=== PATIENT | male | born 1925 | race Caucasian/White ===

== ENCOUNTER → 2017-01-12 | Outpatient (CLI) | payer MEDICARE ==
[~2017-01-12] MED LIST: ASPIRIN 81MG TA81 MG PO; LOSARTAN POTASS50 MG PO; METFORMIN1000 MG PO; METOPROLOL50 MG PO; NEXIUM40 MG PO; PREDNISONE 10MG10 MG PO; PROAIR HFA0.09 MG/AC IH; PROMETHAZINE D118 ML PO; SIMVASTATIN40 MG PO; ZITHROMAX Z PA250 MG PO
[2017-01-12 09:14] LABS: HEMOGLOBIN 14.1 g/dL (14.1-18.0); LYMPH # 2.1 K/mm3 (0.7-4.5); LYMPH % 33.9 % (10-50)
[2017-01-12 14:58] LABS: BUN 21 mg/dL (7-18)
[2017-01-12 15:02] LABS: GFR (ESTIMATED) 57 ML/MIN (>60)
== END ==
LOC: LAB 08:58
PROVIDERS: Nurse Practitioner Family
DX: I10 Essential (primary) hypertension (principal); E11.21 Type 2 diabetes mellitus with diabetic nephropathy